=== PATIENT | female | born 1955 | race Caucasian/White ===

== ENCOUNTER 2020-01-19 01:36 | Emergency (ER) | payer OTHER, SELFPAY ==
[2020-01-19 01:36] VITALS: BP 111/66; PULSE 83; RESP 16; TEMP 36.8; O2SAT 90; BMI 39.1
--- NOTE | 2020-01-19 01:43 | ED_ITS ---
HPI - General Adult General Chief complaint: Fall Stated complaint: ETOH Time Seen by Provider: 01/19/20 01:37 Source: patient and EMS Mode of arrival: EMS Limitations: no limitations History of Present Illness HPI narrative: Patient is a 64-year-old female brought in by BLS after reported that she was [place] Patient states she has been drinking alcohol this evening. Denies any other drugs or other toxic ingestions. Patient states that she went into the bathroom to urinate. She states that she did fall over the bathroom. She does not think that she hit her head. She is not in any pain. She states she could not get up off the floor. She attributes this to the alcohol that she has been drinking. EMS reports that when she was aroused by them in the bathroom she had some shortness of breath that seems to have resolved without any intervention. Patient has no complaints other than being embarrassed for being brought to the emergency department. Related Data Allergies Allergy/AdvReac Type Severity Reaction Status Date / Time No Known Drug Allergies Allergy Verified 01/19/20 01:55 Review of Systems Constitutional Constitutional: Denies fever(s) and Denies headache(s) ENT Ears, Nose, Mouth, and Throat: Denies headache(s) Cardiovascular Cardiovascular: Denies chest pain and Denies dyspnea Respiratory Respiratory: Denies dyspnea Gastrointestinal Gastrointestinal: Denies abdominal pain Musculoskeletal Musculoskeletal: Denies arthralgias, Denies back pain and Denies myalgias Integumentary/Breasts Skin/Breast: Denies rash Neurologic Neurologic: Denies headache(s) Comments: Intoxication Psychiatric Psychiatric: Reports depression Hematologic/Lymphatic Hematologic/Lymphatic: Denies easy bleeding and Denies easy bruising Allergic/Immunologic Allergic/Immunologic: Denies urticaria Patient History Medical History Alcohol abuse (Acute) Depression (Acute) Social History Smoking Status: Current every day smoker Exam Initial Vital Signs Initial Vital Signs: Vital Signs Temperature 98.3 F 01/19/20 01:36 Pulse Rate 83 01/19/20 01:36 Respiratory Rate 16 01/19/20 01:36 Blood Pressure 111/66 01/19/20 01:36 Pulse Oximetry 90 L 01/19/20 01:36 Const General: cooperative and comfortable HENMT Head: normal to inspection and normocephalic Resp Effort & Inspection: normal respiratory effort Auscultation: clear to auscultation bilaterally Cardio Rate: regular rate Rhythm: regular rhythm Skin Lesions: no lesions Rashes: no rashes Neuro General: patient alert, patient awake and patient oriented x3 Cognition: normal cognition Speech: speech normal Motor: muscle tone normal throughout Sensory Exam: no sensory deficits noted Extrem General: normal to inspection and capillary refill normal Psych Appearance: grossly normal and well kempt Scores GCS [place] coma scale eye opening: Spontaneous [place] coma scale verbal response: Orientated [place]am coma scale motor response: Obey commands [place] coma scale total score: 15 Course Vital Signs Vital signs: Vital Signs - 8 hr 01/19/20 01:36 01/19/20 01:54 01/19/20 01:57 Temperature 98.3 F Pulse Rate 83 Respiratory Rate 16 Blood Pressure 111/66 Pulse Oximetry 90 L 96 94 01/19/20 02:54 Temperature 98.2 F Pulse Rate 74 Respiratory Rate 16 Blood Pressure 110/56 L Pulse Oximetry 95 Medical Decision Making MDM Narrative Medical decision making narrative: No injuries reported from the patient or found on the exam. Patient does admit to drinking alcohol. She is alert oriented x3. Feel we can hold on blood work and radiologic studies for now. Patient was discharged home with friend. She was given return precautions. She expressed understanding and agreement. Discharge Plan Departure Patient Disposition: Home Clinical Impression: Alcohol intoxication Qualifiers: Complication of substance-induced condition: with unspecified complication Qualified Code(s): F10.929 - Alcohol use, unspecified with intoxication, unspecified Discharge Date/Time: 01/19/20 02:54 Instructions: DI for Alcohol Use Disorder Activity Restrictions/Additional Instructions: No driving for the next 24 hours or in the future if you drink alcohol. Contact your primary provider for follow-up. Return to the emergency department for any new or worsening symptoms Referrals: Jonah Syed MD [Primary Care Provider] -
[2020-01-19 01:54] VITALS: O2SAT 96
[2020-01-19 01:57] VITALS: O2SAT 94
[2020-01-19 02:54] VITALS: BP 110/56; PULSE 74; RESP 16; TEMP 36.8; O2SAT 95
== END 2020-01-19 02:54 | disposition home or self-care (01) ==
PROVIDERS: Emergency Provider Emergency Medicine; PCP Internal Medicine
DX: F10.929 Alcohol use, unspecified with intoxication, unspecified (principal)
CPT/HCPCS: 99281